=== PATIENT | male | born 1960 | race Caucasian/White ===

== ENCOUNTER 2017-05-26 20:17 | Emergency (ER) | payer BC ==
[~2017-05-26] VITALS: Ht 185.4 cm; Wt 89.5 kg
[~2017-05-26 20:17] MED LIST: B-12 100 MCG; BIAXIN 500MG T500 MG PO; BUPROPRION; CYMBALTA 60MG60 MG PO; DOXYCYCLINE 10100 MG PO; FLEXERIL 1010 MG/TAB PO; FLONASE NASAL S16 GM NS; LORTAB 5/500 501 TAB PO; PRINIVIL10 MG PO; TOPROL XL 25MG25 MG PO; VITAMIN D32000 IU PO
[2017-05-26 20:18] VITALS: BP 120/75; PULSE 51; TEMP 97.9
[2017-05-26] MEDS ORDERED: PRINIVIL10 MG PO (20:22)
[2017-05-26] MEDS ORDERED: MULTI VITAMINS1 TAB PO (20:23)
== END 2017-05-26 21:42 | disposition home or self-care (01) ==
LOC: COL.ER 20:17
DX: H11.31 Conjunctival hemorrhage, right eye (principal); S05.01XA Injury of conjunctiva and corneal abrasion without foreign body, right eye, initial encounter; I10 Essential (primary) hypertension; G89.29 Other chronic pain; M54.9 Dorsalgia, unspecified; F17.220 Nicotine dependence, chewing tobacco, uncomplicated; W22.8XXA Striking against or struck by other objects, initial encounter

== ENCOUNTER → 2017-09-27 | Outpatient (CLI) | payer BC ==
[~2017-09-27] MED LIST changes: +MULTI VITAMINS1 TAB PO
== END ==
LOC: COL.RAD 13:01
DX: M75.81 Other shoulder lesions, right shoulder (principal); M19.011 Primary osteoarthritis, right shoulder; M25.811 Other specified joint disorders, right shoulder

== ENCOUNTER → 2018-09-16 | Outpatient (CLI) | payer BC | LOC: ZMSC 15:58 | DX: Z01.89 Encounter for other specified special examinations (principal) ==

== ENCOUNTER → 2020-03-27 | Outpatient (CLI) | payer BC ==
[2020-03-27 15:17] LABS: TROPONIN-I < 0.012 ng/mL (0.000-0.035)
== END ==
LOC: ZCOL.LAB 14:05
PROVIDERS: Family Medicine
DX: R06.02 Shortness of breath (principal)

== ENCOUNTER 2020-07-22 19:47 | Inpatient (IN) | payer BC ==
[2020-07-22] VITALS (61 sets, daily range): BP systolic 109–123; BP diastolic 79–94; PULSE 78–86; TEMP 98–98.1; O2SAT 91–98
[~2020-07-22] VITALS: Ht 185.4 cm; Wt 89.6 kg
[2020-07-22 20:12] LABS: BASO # 0.1 (0.0-0.2); BASO % 0.6 % (0.0-2.0); EOS # 0.1 (0.0-0.7); EOS % 1.3 % (0-4.0); GRAN # 4.8 (1.4-6.5); GRAN % 61.6 % (42.2-75.2); HEMOGLOBIN 15.7 g/dl (13.5-18.0); LYMPH # 2.1 (1.2-3.4); LYMPH % 27.6 % (20.0-51.0); MEAN CELL VOLUME 89 fl (80.0-100.0); MEAN CORPUSCULAR HEMOGLOBIN 31 pg (27.0-31.0); MEAN CORPUSCULAR HGB CONC 34 g/dl (33.0-37.0); MEAN PLATELET VOLUME 10.7 fl (7.4-10.4); MONO # 0.7 (0.1-0.6); MONO % 8.8 % (1.7-9.3); PLATELET COUNT 271 K/mm3 (130-400); RED BLOOD COUNT 5.15 M/mm3 (4.20-5.60); REDCELL DISTRIBUTION WIDTH-CV 11.9 % (11.5-14.5)
[2020-07-22 20:19] LABS: PROTHROMBIN TIME 11.4 SECONDS (9.7-12.8)
[2020-07-22 20:25] LABS: ALANINE AMINOTRANSFERASE 36 U/L (4-49); ALBUMIN 4.8 gm/dL (3.5-5.0); ALKALINE PHOSPHATASE 68 U/L (50-136); ANION GAP 8 mmol/L (7-16); AST,SGOT 36 U/L (15-37); BILIRUBIN,TOTAL 0.7 mg/dL (0.0-1.0); BLOOD UREA NITROGEN 19 mg/dL (9-20); CALCIUM 9.7 mg/dL (8.4-10.2); CARBON DIOXIDE 28 mmol/L (22-30); CHLORIDE 101 mmol/L (98-107); CREATINE KINASE 188 U/L (55-170); CREATININE, serum 1.43 (0.66-1.25); GLUCOSE 120 mg/dL (74-106); MAGNESIUM 2.3 mg/dL (1.6-2.3); POTASSIUM 4.3 mmol/L (3.4-5.0); SODIUM 137 mmol/L (137-145)
[2020-07-22] MEDS ORDERED: CYMBALTA 30MG30 MG PO (20:31)
[2020-07-22 20:46] LABS: TROPONIN-I < 0.012 ng/mL (0.000-0.035)
[2020-07-22] MEDS ORDERED: CRESTOR5 MG PO (20:59)
[2020-07-22] MEDS ORDERED: FLOMAX 0.40.4 MG/CAP PO (23:14)
[2020-07-23] VITALS (269 sets, daily range): BP systolic 99–113; BP diastolic 60–75; PULSE 47–82; TEMP 98–98.5; O2SAT 92–99
[2020-07-23 06:13] LABS: BASO # 0.1 (0.0-0.2); BASO % 0.9 % (0.0-2.0); EOS # 0.1 (0.0-0.7); EOS % 2.2 % (0-4.0); GRAN # 2.9 (1.4-6.5); GRAN % 48.9 % (42.2-75.2); HEMATOCRIT 43.4 % (42.0-52.0); HEMOGLOBIN 14.5 g/dl (13.5-18.0); LYMPH # 2.2 (1.2-3.4); LYMPH % 37.8 % (20.0-51.0); MEAN CELL VOLUME 92 fl (80.0-100.0); MEAN CORPUSCULAR HEMOGLOBIN 31 pg (27.0-31.0); MEAN CORPUSCULAR HGB CONC 33 g/dl (33.0-37.0); MONO # 0.6 (0.1-0.6); MONO % 9.9 % (1.7-9.3); PLATELET COUNT 236 K/mm3 (130-400); RED BLOOD COUNT 4.73 M/mm3 (4.20-5.60); REDCELL DISTRIBUTION WIDTH-CV 12.1 % (11.5-14.5)
[2020-07-23 06:23] LABS: ANION GAP 7 mmol/L (7-16); BLOOD UREA NITROGEN 19 mg/dL (9-20); CARBON DIOXIDE 25 mmol/L (22-30); CHLORIDE 106 mmol/L (98-107); CHOLESTEROL 199 mg/dL (120-200); CHOLESTEROL RISK RATIO 4.2; CREATININE, serum 1.12 (0.66-1.25); GLUCOSE 97 mg/dL (74-106); HDL CHOLESTEROL 47 mg/dL; LDL CHOLESTEROL 124 mg/dL; POTASSIUM 4.5 mmol/L (3.4-5.0); SODIUM 139 mmol/L (137-145); TRIGLYCERIDE 139 mg/dL
[2020-07-23 06:33] LABS: TROPONIN-I < 0.012 ng/mL (0.000-0.035)
[2020-07-23] MEDS ORDERED: ELIQUIS 5MG PO (14:04)
[2020-07-23] MEDS ORDERED: CARDIZEM 60MG T60 MG PO (14:04)
--- NOTE | 2020-07-23 15:30 | NUR ---
Discharge instructions and medications reviewed with patient and . Education provided for new medications and AFib. Both voice understanding of instructions. [id number] discharged to home POV with driving
== END 2020-07-23 15:33 | disposition home or self-care (01) | DRG 309 ==
LOC: COL.ER 19:47 → ICU 21:02
PROVIDERS: Emergency Medicine; Physician Assistant; ADMIT Student in an Organized Health Care Education/Training Program
DX: I48.91 Unspecified atrial fibrillation (principal); N17.9 Acute kidney failure, unspecified; I10 Essential (primary) hypertension; F32.9 Major depressive disorder, single episode, unspecified; E78.5 Hyperlipidemia, unspecified; F17.210 Nicotine dependence, cigarettes, uncomplicated; Z88.0 Allergy status to penicillin; Z88.1 Allergy status to other antibiotic agents
CPT/HCPCS: 99222-AI; 99239; J1650; J7030

== ENCOUNTER 2020-10-01 14:00 | Outpatient (CLI) | payer BC ==
[~2020-10-01] VITALS: Ht 185.4 cm; Wt 92.7 kg
[~2020-10-01 14:00] MED LIST changes: +CARDIZEM 60MG T60 MG PO; +CRESTOR5 MG PO; +CYMBALTA 30MG30 MG PO; +ELIQUIS 5MG PO; +FLOMAX 0.40.4 MG/CAP PO
[2020-10-01 14:59] VITALS: BP 116/74; PULSE 98; TEMP 96.4
[2020-10-01] MEDS ORDERED: ELIQUIS 2.5 PO (15:12)
[2020-10-01] MEDS ORDERED: THE MEDICINE S200 M2 PO (15:14)
[2020-10-01] MEDS ORDERED: ONE-A-DAY ESSE1 EACH PO (15:14)
[2020-10-01 15:15] VITALS: BP 112/77; PULSE 98
[2020-10-01] MEDS ORDERED: TYLENOL 500MG500 MG PO (15:15)
[2020-10-01 15:41] VITALS: BP 106/78; PULSE 93; TEMP 97.4
[2020-10-01 16:00] VITALS: BP 120/76; PULSE 94
[2020-10-01 16:30] VITALS: BP 119/86; PULSE 90
[2020-10-01 17:00] VITALS: BP 122/91; PULSE 94; TEMP 97.3
== END 2020-10-01 18:00 | disposition home or self-care (01) ==
LOC: EUO 14:00
DX: U07.1 COVID-19 (principal)
CPT/HCPCS: J7050

== ENCOUNTER 2021-07-16 06:57 | Day surgery (SDC) | payer BC ==
[~2021-07-16] VITALS: Ht 185.5 cm; Wt 95.1 kg
[~2021-07-16 06:57] MED LIST changes: +ONE-A-DAY ESSE1 EACH PO; +THE MEDICINE S200 M2 PO; +TYLENOL 500MG500 MG PO
[2021-07-16 08:00] LABS: POTASSIUM 4.4 mmol/L (3.5-4.5)
[2021-07-16 08:05] LABS: PROTHROMBIN TIME 11.6 SECONDS (9.7-12.8)
[2021-07-16] MEDS ORDERED: CARTIA XT240 MG PO (08:22)
[2021-07-16 08:27] VITALS: BP 130/97; PULSE 86; TEMP 98.8
[2021-07-16 08:27] LABS: THYROID STIMULATING HORMONE 1.137 uIU/mL (0.350-4.940)
[2021-07-16] MEDS ORDERED: GLUCOSAMINE & C1 CA2 PO (08:31)
[2021-07-16] MEDS ORDERED: VITAMIN C500 MG PO (08:32)
[2021-07-16] MEDS ORDERED: FOLIC ACID0.4 MG PO (08:33)
[2021-07-16] MEDS ORDERED: NATURAL IRON65 MG PO (08:33)
[2021-07-16] MEDS ORDERED: CLARITIN 1010 MG/TAB PO (08:33)
[2021-07-16 09:45] VITALS: BP 119/74; PULSE 63
--- NOTE | 2021-07-16 09:45 | NUR ---
report from [employer] nurse, pt is sitting up and awake, talking to staff. in room, call light in reach, apple juice given, no c/o
--- NOTE | 2021-07-16 09:55 | NUR ---
Report to Jae Sheets.
[2021-07-16 10:00] VITALS: BP 115/76; PULSE 65
--- NOTE | 2021-07-16 10:00 | NUR ---
pt sits on side of bed, EKG done earlier, pt remains in sinus rhythm. reviewed discharge inst. with pt and on moderate sedation precautions, also pt will make his own [address] Lou, has number, no changes to med list at this time, with verbal understanding.
[2021-07-16 10:15] VITALS: BP 115/67; PULSE 65
--- NOTE | 2021-07-16 10:20 | NUR ---
iv d'cd intact and wrapped, pt is up in room dressed, no c/o. discharged via w/c to car with . called pt later and reviewed discharge inst. due to paper being left here
== END 2021-07-16 10:45 | disposition home or self-care (01) ==
LOC: COL.CAR 06:57
PROVIDERS: Internal Medicine Cardiovascular Disease
DX: I48.0 Paroxysmal atrial fibrillation (principal); I10 Essential (primary) hypertension; E78.5 Hyperlipidemia, unspecified; M51.36 Other intervertebral disc degeneration, lumbar region; I34.0 Nonrheumatic mitral (valve) insufficiency; F41.9 Anxiety disorder, unspecified; F32.A Depression, unspecified; F17.220 Nicotine dependence, chewing tobacco, uncomplicated; Z79.899 Other long term (current) drug therapy
CPT/HCPCS: J2704; J7030